=== PATIENT | female | born 1955 | race Caucasian/White ===

== ENCOUNTER 2020-08-09 09:58 | Observation (INO) ==
[2020-08-09] MEDS ORDERED: CeFAZolin Syr 2,000MG/20 ML 2,000 MG/20 ML SYRINGE IVPB ONE (10:23)
[2020-08-09] MEDS: Ringers Solution, Lactated 1,000 ML IVC SCH ×2 (11:02→11:54)
[2020-08-09] MEDS ORDERED: *HR* Propofol 200 MG/20 ML VIAL IVP ONE ×4 (11:22→14:44)
[2020-08-09] MEDS ORDERED: *HR* FentaNYL (PF) 100 MCG/2 ML VIAL ONE (11:22)
[2020-08-09] MEDS ORDERED: *HR* Succinylcholine 200 MG/10 ML VIAL IVP ONE (11:24)
[2020-08-09] MEDS ORDERED: Lidocaine -MPF 2% 2 ML VIAL ONE (11:24)
[2020-08-09] MEDS ORDERED: Ondansetron 4 MG/2 ML VIAL ONE (11:25)
[2020-08-09] MEDS ORDERED: Dexamethasone 4 MG/ML VIAL ONE (11:25)
[2020-08-09] MEDS ORDERED: *HR* OxyCODONE Immed Rel 5 MG TABLET PO PRN (11:34)
[2020-08-09] MEDS ORDERED: Acetaminophen IV 1,000 MG/100 ML BAG IVPB ONE (11:34)
[2020-08-09] MEDS ORDERED: Scopolamine Patch 1.5 MG PATCH.TD72 TD ONE (11:34)
[2020-08-09] MEDS ORDERED: Pregabalin 75 MG CAPSULE PO ONE (11:34)
[2020-08-09] MEDS ORDERED: *HR* HYDROmorphone 2 MG TABLET PO PRN (11:34)
[2020-08-09] MEDS ORDERED: Famotidine 20 MG/2 ML VIAL IVP ONE (11:34)
[2020-08-09] MEDS ORDERED: Bacitracin 50,000 UNIT, Polymyxin B Sulfate 500,000 UNIT, Sodium Chloride IRRigation 1,... IR ONE (12:00)
[2020-08-09] MEDS ORDERED: *HR* Remifentanil 1 MG VIAL IVP ONE ×3 (12:37→14:47)
[2020-08-09] MEDS ORDERED: Lidocaine HCL 4 ML Topical Solution (Laryng-O-Jet Kit Sterile Pak) TP ONE (12:40)
[2020-08-09] MEDS ORDERED: EPHEDrine 50 MG/ML VIAL ONE (13:16)
[2020-08-09] MEDS: *HR* Labetalol 20 MG/4 ML SYRINGE IVP PRN ×2 (15:45→16:06)
[2020-08-09] MEDS: *HR* HYDROmorphone (PF) 1 MG/ML SYRINGE IVP PRN ×3 (15:49→16:09)
[2020-08-09] MEDS ORDERED: Ondansetron 4 MG/2 ML VIAL IVP PRN (17:00)
[2020-08-09] MEDS ORDERED: *HR* HYDROcodone/Acet 5/325 mg TABLET PO PRN (17:00)
[2020-08-09] MEDS ORDERED: Acetaminophen 325 MG TABLET PO PRN (17:00)
[2020-08-09] MEDS ORDERED: Naloxone 0.4 MG/ML INJ IVP PRN (17:00)
[2020-08-09] MEDS ORDERED: Ringers Solution, Lactated 1,000 ML IVC SCH (17:00)
[2020-08-09] MEDS ORDERED: SEMAGLUTIDE 0.5 MG SQ SCH (17:00)
[2020-08-09] MEDS: CeFAZolin 2 GM/120 ML BAG IVPB SCH (19:34)
[2020-08-10] MEDS: Pregabalin 75 MG CAPSULE PO SCH ×4 (00:47→22:07)
[2020-08-10] MEDS: CeFAZolin 2 GM/120 ML BAG IVPB SCH (01:42)
[2020-08-10] MEDS: *HR* OxyCODONE Immed Rel 5 MG TABLET PO PRN ×2 (04:55→22:05)
[2020-08-10] MEDS: Lisinopril-HCTZ 20-12.5mg TABLET PO SCH (08:25)
[2020-08-10] MEDS: Aspirin Enteric Coated 325 MG Tablet PO SCH (08:25)
[2020-08-10] MEDS: Loratadine 10 MG TABLET PO SCH (08:26)
[2020-08-10] MEDS: *HR* Metformin 500 MG TABLET PO SCH (08:26)
[2020-08-10] MEDS: Insulin DETEMIR 100 UNIT/ML X5UNITS SUBQ SCH (08:28)
[2020-08-10 12:54] LABS: Basophils % 0.3 %; Eosinophils % 0.3 %; Hematocrit 36.9 % (35.3-44.9); Hemoglobin 11.6 g/dL (11.5-15.4); Immature Granulocytes % 0.2 % (0-4); Lymphocytes % 10.5 %; Mean Corpuscular HGB Conc 31.4 g/dL (31.6-35.5); Mean Corpuscular Hemoglobin 27.4 pg (28.0-33.3); Mean Corpuscular Volume 87.2 fL (83.0-100.0); Mean Platelet Volume 11.2 fL (9.4-12.4); Monocytes # 0.4 K/mcL (0.0-1.3); Monocytes % 3.9 %; Platelet Count 270 K/mcL (140-400); Red Blood Count 4.23 M/mcL (3.82-4.97); Red Cell Distribution Width 13.4 % (11.5-14.5); Segmented Neutrophils % 84.8 %; White Blood Count 9.4 K/mcL (4.3-11.1)
[2020-08-10 13:00] LABS: Alanine Aminotransferase 10 Units/L (7-52); Albumin 3.7 g/dL (3.5-5.7); Albumin/Globulin Ratio 1.3 (1.1-2.2); Alkaline Phosphatase 74 Units/L (34-104); Aspartate Amino Transferase 16 Units/L (13-39); BUN/Creatinine Ratio 18 (6-26); Bilirubin,Total 0.6 mg/dL (0.3-1.0); Blood Urea Nitrogen 14 mg/dL (8-23); Calcium 9.1 mg/dL (8.6-10.3); Carbon Dioxide 27 mEq/L (23-29); Chloride 104 mEq/L (98-107); Globulin 2.8 g/dL (2.4-3.5); Glucose 186 mg/dL (70-105); Osmolality,Calculated 293 (280-300); Potassium 3.8 mEq/L (3.5-5.1); Sodium 139 mEq/L (136-145); Total Protein 6.5 g/dL (6.4-8.9); eGFR For African Americans > 60 (> 60); eGFR For Non-African Americans > 60 (> 60)
[2020-08-11] MEDS: *HR* OxyCODONE Immed Rel 5 MG TABLET PO PRN (06:19)
[2020-08-11] MEDS: *HR* Metformin 500 MG TABLET PO SCH (08:39)
[2020-08-11] MEDS: Lisinopril-HCTZ 20-12.5mg TABLET PO SCH (08:39)
[2020-08-11] MEDS: Aspirin Enteric Coated 325 MG Tablet PO SCH (08:39)
[2020-08-11] MEDS: Pregabalin 75 MG CAPSULE PO SCH (08:40)
[2020-08-11] MEDS: Loratadine 10 MG TABLET PO SCH (08:40)
[2020-08-11] MEDS: Insulin DETEMIR 100 UNIT/ML X5UNITS SUBQ SCH (08:40)
[2020-08-11 11:32] VITALS: BP 148/84
== END 2020-08-11 12:48 | disposition home or self-care (01) ==
LOC: SAMDAY 09:58 → 3NENU 09:58
PROVIDERS: ADMIT Orthopaedic Surgery Orthopaedic Surgery of the Spine; ATTEND Orthopaedic Surgery Orthopaedic Surgery of the Spine

== ENCOUNTER 2021-03-03 19:18 | Observation (INO) ==
[2021-03-03] MEDS ORDERED: Ondansetron 4 MG/2 ML VIAL IVP PRN (22:15)
[2021-03-03] MEDS ORDERED: Naloxone 0.4 MG/ML INJ IVP PRN (22:15)
[2021-03-03] MEDS ORDERED: Acetaminophen 325 MG TABLET PO PRN (22:15)
[2021-03-03] MEDS ORDERED: D5% in Water 1,000 ML IVC PRN (22:20)
[2021-03-03] MEDS ORDERED: Dextrose Gel 15 GM/37.5 ML TUBE PO PRN ×2 (22:20)
[2021-03-03] MEDS ORDERED: *HR* Dextrose 50 % in Water (Vial) 50 ML VIAL IVP PRN (22:20)
[2021-03-03] MEDS: cefTRIAXone 1,000 MG in 0.9 % Sodium Chloride Mini Bag 100 ML IVPB SCH (23:17)
[2021-03-03] MEDS: 0.9 % Sodium Chloride 1,000 ML IVC SCH (23:17)
[2021-03-03] MEDS: Insulin LISPRO 300 UNITS/3 ML VIAL SUBQ SCH (23:19)
[2021-03-04] MEDS ORDERED: *HR* HYDROmorphone (PF) 1 MG/ML SYRINGE IVP PRN ×2 (01:10→13:23)
[2021-03-04] MEDS ORDERED: *HR* OxyCODONE Immed Rel 5 MG TABLET PO PRN (02:07)
[2021-03-04 06:48] LABS: Basophils % 0.4 %; Eosinophils # 0.2 K/mcL (0.0-0.6); Eosinophils % 2.1 %; Hematocrit 34.2 % (35.3-44.9); Hemoglobin 10.7 g/dL (11.5-15.4); Immature Granulocytes % 0.3 % (0-4); Lymphocytes # 1.3 K/mcL (0.6-4.6); Mean Corpuscular HGB Conc 31.3 g/dL (31.6-35.5); Mean Corpuscular Hemoglobin 27.7 pg (28.0-33.3); Mean Corpuscular Volume 88.6 fL (83.0-100.0); Mean Platelet Volume 11.2 fL (9.4-12.4); Monocytes # 0.5 K/mcL (0.0-1.3); Neutrophils # 7.4 K/mcL (1.6-8.9); Platelet Count 199 K/mcL (140-400); Red Blood Count 3.86 M/mcL (3.82-4.97); Red Cell Distribution Width 13.8 % (11.5-14.5); Segmented Neutrophils % 78.2 %; White Blood Count 9.5 K/mcL (4.3-11.1)
[2021-03-04 07:09] LABS: Calcium 8.2 mg/dL (8.6-10.3); Magnesium 1.8 mg/dL (1.6-2.6); Potassium 3.8 mEq/L (3.5-5.1)
[2021-03-04 07:13] LABS: INR 1.1; Prothrombin Time 12.6 Seconds (9.4-12.1)
[2021-03-04] MEDS: Insulin LISPRO 300 UNITS/3 ML VIAL SUBQ SCH ×3 (07:51→16:24)
[2021-03-04] MEDS: 0.9 % Sodium Chloride 1,000 ML IVC SCH (08:43)
[2021-03-04] MEDS: cefTRIAXone 1,000 MG in 0.9 % Sodium Chloride Mini Bag 100 ML IVPB SCH (08:45)
[2021-03-04] MEDS ORDERED: Pregabalin 75 MG CAPSULE PO SCH (09:00)
[2021-03-04] MEDS ORDERED: Aspirin Enteric Coated 325 MG Tablet PO SCH (09:00)
[2021-03-04 09:06] LABS: Bacteria,Urine Few per hpf (None-Few); Bilirubin,Urine Negative (Negative); Blood,Urine Negative (Negative); Clarity,Urine Clear (Clear); Color,Urine Yellow (Yellow); Glucose,Urine (UA) Normal (Normal); Ketones,Urine Negative (Negative); Leukocyte Esterase,Urine Moderate (Negative); Mucus,Urine Few per lpf (None-Few); Nitrite,Urine Negative (Negative); PH,Urine 5.5 pH Units (5.0-8.0); Protein,Urine Negative (Neg-Trace); Specific Gravity,Urine 1.022 (1.010-1.025); Squamous Epithelial Cell,Urine Few per hpf (None-Few); Urobilinogen,Urine Normal (Normal); WBC,Urine 15-30 per hpf (0-3)
[2021-03-04] MEDS ORDERED: *HR* FentaNYL (PF) 100 MCG/2 ML VIAL ONE (09:51)
[2021-03-04] MEDS ORDERED: Ondansetron 4 MG/2 ML VIAL ONE (09:51)
[2021-03-04] MEDS ORDERED: *HR* Propofol 200 MG/20 ML VIAL IVP ONE (09:51)
[2021-03-04] MEDS ORDERED: Lidocaine -MPF 2% 2 ML VIAL ONE (09:51)
[2021-03-04] MEDS ORDERED: *HR* Dextrose 50 % in Water (Vial) 50 ML VIAL ONE (11:46)
[2021-03-04] MEDS ORDERED: Isovue-300 50ML VIAL ONE (11:56)
[2021-03-04] MEDS ORDERED: EPHEDrine 50 MG/ML VIAL ONE (12:01)
[2021-03-04] MEDS ORDERED: D5% in Water 1,000 ML IVC PRN (13:23)
[2021-03-04] MEDS ORDERED: *HR* Belladonna Alkaloids/Opium 30 MG RECTAL SUPPOSITORY RC PRN (13:23)
[2021-03-04] MEDS ORDERED: *HR* Dextrose 50 % in Water (Vial) 50 ML VIAL IVP PRN (13:23)
[2021-03-04] MEDS ORDERED: 0.9 % Sodium Chloride 1,000 ML IVC SCH (13:23)
[2021-03-04] MEDS ORDERED: Acetaminophen 325 MG TABLET PO PRN (13:23)
[2021-03-04] MEDS ORDERED: Naloxone 0.4 MG/ML INJ IVP PRN (13:23)
[2021-03-04] MEDS ORDERED: Ondansetron 4 MG/2 ML VIAL IVP PRN (13:23)
[2021-03-04] MEDS ORDERED: Dextrose Gel 15 GM/37.5 ML TUBE PO PRN ×2 (13:23)
[2021-03-04] MEDS: Pregabalin 75 MG CAPSULE PO SCH ×2 (16:23→20:30)
[2021-03-04] MEDS: *HR* OxyCODONE Immed Rel 5 MG TABLET PO PRN (20:32)
[2021-03-04] MEDS ORDERED: Insulin LISPRO 300 UNITS/3 ML VIAL SUBQ SCH (21:00)
[2021-03-05 02:22] LABS: Basophils % 0.1 %; Eosinophils % 0.1 %; Hematocrit 35.2 % (35.3-44.9); Hemoglobin 11.3 g/dL (11.5-15.4); Immature Granulocytes % 0.2 % (0-4); Lymphocytes # 0.7 K/mcL (0.6-4.6); Lymphocytes % 7.5 %; Mean Corpuscular HGB Conc 32.1 g/dL (31.6-35.5); Mean Corpuscular Hemoglobin 28.3 pg (28.0-33.3); Mean Corpuscular Volume 88.2 fL (83.0-100.0); Mean Platelet Volume 11.8 fL (9.4-12.4); Monocytes # 0.3 K/mcL (0.0-1.3); Monocytes % 3.2 %; Neutrophils # 8.8 K/mcL (1.6-8.9); Platelet Count 231 K/mcL (140-400); Red Blood Count 3.99 M/mcL (3.82-4.97); Red Cell Distribution Width 13.8 % (11.5-14.5); Segmented Neutrophils % 88.9 %; White Blood Count 9.9 K/mcL (4.3-11.1)
[2021-03-05 02:32] LABS: BUN/Creatinine Ratio 25 (6-26); Blood Urea Nitrogen 26 mg/dL (8-23); Calcium 8.4 mg/dL (8.6-10.3); Carbon Dioxide 23 mEq/L (23-29); Chloride 107 mEq/L (98-107); Glucose 207 mg/dL (70-105); Osmolality,Calculated 299 (280-300); Potassium 4.2 mEq/L (3.5-5.1); Sodium 139 mEq/L (136-145); eGFR For African Americans > 60 (> 60); eGFR For Non-African Americans 52 (> 60)
[2021-03-05 02:57] LABS: Estimated Average Glucose 197 mg/dl; Hemoglobin A1C 8.5 %
[2021-03-05 04:13] VITALS: PULSE 73
[2021-03-05 06:40] VITALS: BP 136/78; TEMP 98; O2SAT 95
[2021-03-05] MEDS: Pregabalin 75 MG CAPSULE PO SCH (07:38)
[2021-03-05] MEDS: Insulin LISPRO 300 UNITS/3 ML VIAL SUBQ SCH (07:41)
[2021-03-05] MEDS: *HR* OxyCODONE Immed Rel 5 MG TABLET PO PRN (07:49)
[2021-03-05] MEDS ORDERED: cefTRIAXone 1,000 MG in 0.9 % Sodium Chloride Mini Bag 100 ML IVPB SCH (09:00)
[2021-03-05] MEDS ORDERED: Aspirin Enteric Coated 325 MG Tablet PO SCH (09:00)
[2021-03-11 09:57] LABS: Calculi Mass 158 mg
== END 2021-03-05 10:45 | disposition home or self-care (01) ==
LOC: 3ANU → SUATTDRO 21:56
PROVIDERS: ADMIT Student in an Organized Health Care Education/Training Program; ATTEND General Practice